=== PATIENT | female | born 1995 | race Caucasian/White ===

== ENCOUNTER 2017-01-22 14:16 | Emergency (ER) | payer BC ==
--- NOTE | 2017-01-22 14:47 | UC ---
Throat Pain/Nasal Minh HPI - HPI Summary HPI Summary: worsening allergy sx, nose, eye drainage--no fevers - History of Current Complaint Hx Obtained From: Patient Hx Last Menstrual Period: 01/07/17 ?: No Onset/Duration: Sudden Onset, Lasting Hours, Still Present Severity: Mild Cough: None Associated Signs & Symptoms: Positive: Sinus Discomfort, Nasal Discharge Related History: Seasonal Allergies <Farhana Bartlett - Last Filed: 01/22/17 15:26> <Rut Matson - Last Filed: 01/22/17 15:47> - History of Current Complaint Chief Complaint: UCGeneralIllness Stated Complaint: ALLERGIES- EYES COMPLAINT Time Seen by Provider: 01/22/17 14:35 - Allergies/Home Medications Allergies/Adverse Reactions: Allergies Allergy/AdvReac Type Severity Reaction Status Date / Time No Known Allergies Allergy Verified 01/22/17 14:22 PMH/Surg Hx/FS Hx/Imm Hx Previously Healthy: Yes - Surgical History Surgical History: None - Social History Occupation: Employed Part-time Lives: With Family Alcohol Use: None Substance Use Type: None Smoking Status (MU): Never Smoked Tobacco <Farhana Bartlett - Last Filed: 01/22/17 15:26> Review of Systems Constitutional: Negative Skin: Negative Eyes: Eye Redness ENT: Nasal Discharge, Sinus Pain/Tenderness Respiratory: Negative Cardiovascular: Negative Gastrointestinal: Negative Genitourinary: Negative Motor: Negative Neurovascular: Negative Musculoskeletal: Negative Neurological: Negative Psychological: Negative All Other Systems Reviewed And Are Negative: Yes <Farhana Bartlett - Last Filed: 01/22/17 15:26> Physical Exam Triage Information Reviewed: Yes Appearance: Well-Appearing, No Pain Distress, Well-Nourished Vital Signs: Initial Vital Signs Temp 98.0 F 01/22/17 14:19 Pulse 88 01/22/17 14:19 Resp 18 01/22/17 14:19 BP 153/100 01/22/17 14:19 Pulse Ox 99 01/22/17 14:19 Vital Signs Reviewed: Yes Eye Exam: Normal Eyes: Positive: Conjunctiva Clear ENT Exam: Normal ENT: Positive: Normal ENT inspection, Hearing grossly normal, Pharynx normal, Nasal congestion, Nasal drainage, TMs normal. Negative: Tonsillar swelling, Tonsillar exudate, Trismus, Muffled/hoarse voice Dental Exam: Normal Dental: Positive: Percussion Tenderness @ Neck exam: Normal Neck: Positive: Supple, Nontender, No Lymphadenopathy Respiratory Exam: Normal Respiratory: Positive: Chest non-tender, Lungs clear, Normal breath sounds, No respiratory distress, No accessory muscle use Cardiovascular Exam: Normal Cardiovascular: Positive: RRR, No Murmur, Pulses Normal, Brisk Capillary Refill Musculoskeletal Exam: Normal Neurological Exam: Normal Psychological Exam: Normal Skin Exam: Normal <Farhana Bartlett - Last Filed: 01/22/17 15:26> Vital Signs: Initial Vital Signs Temp 98.0 F 01/22/17 14:19 Pulse 88 01/22/17 14:19 Resp 18 01/22/17 14:19 BP 153/100 01/22/17 14:19 Pulse Ox 99 01/22/17 14:19 <Rut Matson - Last Filed: 01/22/17 15:47> Throat Pain/Nasal Course/Dx - Course Assessment/Plan: zyrtec, zaditor, nasonex, follow with wire drawing machine operator sonny for more sever sx - Differential Dx/Diagnosis Differential Diagnosis/HQI/PQRI: Otitis Media, Pharyngitis, Sinusitis, URI, Other - Allergic Rhinnitis Provider Diagnoses: Allergic Rhinnitis <Farhana Bartlett - Last Filed: 01/22/17 15:26> Discharge <Farhana Bartlett - Last Filed: 01/22/17 15:26> <Rut Matson - Last Filed: 01/22/17 15:47> - Discharge Plan Condition: Stable Disposition: HOME Prescriptions: Cetirizine HCl [Zyrtec Allergy 10 MG TAB] 10 mg PO DAILY #30 tab Ketotifen Fumarate (Ophth) [Zaditor] 0.025 % OP BID #1 bottle Mometasone NASAL (NF) [Nasonex (NF)] 2 spray .SEE ORDER DAILY #1 nasal.spr Patient Education Materials: How to Use Eye Drops (ED), Allergic Rhinitis (ED) , How to Use Nasal [place] (ED) Forms: *Work Release Referrals: Jef Chan MD [Medical Doctor] - 1 Week Attestation Statement User Type: Provider - I was available for consult. This patient was seen by the [facility]. The patient was not presented to, seen by, or examined by me. -Winifred <Rut Matson - Last Filed: 01/22/17 15:47>
== END 2017-01-22 15:00 | disposition home or self-care (01) ==
LOC: UCEAST 14:16
DX: J30.9 Allergic rhinitis, unspecified (principal)
CPT/HCPCS: 99202; G0463

== ENCOUNTER 2019-03-17 14:21 | Emergency (ER) | payer BC ==
[2019-03-17 14:40] VITALS: BP 138/76
--- NOTE | 2019-03-17 14:51 | UC ---
Complaint Female HPI - HPI Summary HPI Summary: One day history of urinary frequency, urgency and hesitancy, without associated fever, chills, back ache or gross hematuria. No past history of UTI's. LMP 2 weeks ago. Takes oral contraceptives and occasionally uses condoms. Has increase in clear vaginal discharge, but no odor, blisters or pain. We discussed STD screening and she elects to have Chlamydia and GC urinary screening today. She states that she has not been screened in the past. She has had a recent change of partner with unprotected intercourse several days ago. - History Of Current Complaint Chief Complaint: UCGU Stated Complaint: URINARY Time Seen by Provider: 03/17/19 14:40 Hx Obtained From: Patient Hx Last Menstrual Period: "two weeks ago" Onset/Duration: Gradual Onset, Lasting Days - 2 Timing: Intermittent Severity Initially: Mild Severity Currently: Mild Pain Intensity: 2 Character: Burning, Cramping Aggravating Factor(s): Urination Alleviating Factor(s): Nothing Associated Signs And Symptoms: Negative: Fever, Back Pain - Risk Factors Ectopic Risk Factor: Negative Ovarian Torsion Risk Factor: Reproductive Age - Allergies/Home Medications Allergies/Adverse Reactions: Allergies Allergy/AdvReac Type Severity Reaction Status Date / Time No Known Allergies Allergy Verified 03/17/19 14:36 Home Medications: Home Medications Escitalopram * [Lexapro *] 20 mg PO DAILY 03/17/19 [History Confirmed 03/17/19] Norethindrone-E.estradiol-Iron [Eqmcik-Yzgncx-Si 1-0.02(33)-75] 1 tab DAILY 04/25 [History Confirmed 03/17/19] hydrOXYzine HCL TAB* [Atarax 25 MG TAB*] 25 mg PO QID PRN 03/17/19 [History Confirmed 03/17/19] PMH/Surg Hx/FS Hx/Imm Hx Previously Healthy: Yes - overweight - Surgical History Surgical History: None - Family History Known Family History: Positive: Diabetes - PGF has diabetes. - Social History Occupation: Employed Full-time Lives: With Family Alcohol Use: Rare Substance Use Type: Marijuana Substance Use Comment - Amount & Last Used: Daily Smoking Status (MU): Never Smoked Tobacco Review of Systems All Other Systems Reviewed And Are Negative: Yes Constitutional: Positive: Negative Skin: Positive: Negative Eyes: Positive: Negative ENT: Positive: Negative Respiratory: Positive: Negative Gastrointestinal: Positive: Diarrhea - increase in loose stools x 1 week. Genitourinary: Positive: Dysuria, Frequency, Urgency Motor: Positive: Negative Neurovascular: Positive: Negative Musculoskeletal: Positive: Negative Neurological: Positive: Negative Is Patient Immunocompromised?: No Physical Exam Triage Information Reviewed: Yes Appearance: Well-Appearing, No Pain Distress, Obese Vital Signs: Initial Vital Signs Temp 96.6 F 03/17/19 14:32 Pulse 80 03/17/19 14:32 Resp 18 03/17/19 14:32 BP 138/76 03/17/19 14:32 Pulse Ox 99 03/17/19 14:32 Eye Exam: Normal ENT: Positive: Pharynx normal Neck: Positive: Supple, Nontender, No Lymphadenopathy Respiratory: Positive: Lungs clear, Normal breath sounds Cardiovascular: Positive: RRR, No Murmur Abdomen Description: Positive: Nontender, Soft. Negative: CVA Tenderness (R), CVA Tenderness (L) Musculoskeletal Exam: Normal Neurological: Positive: Alert Psychological Exam: Other - anxious demeanor Skin Exam: Normal Diagnostics - Laboratory Lab Results: UA with 1+ leuks Complaint Female Dx - Course Course Of Treatment: Discussed likely UTI, will treat with macrodantin and await culture. Declined pellvic check but does want to screen for Chlamydia and GC. - Differential Dx/Diagnosis Differential Diagnosis/HQI/PQRI: Urinary Tract Infection, Other - vaginosis Provider Diagnosis: UTI (urinary tract infection) Discharge ED - Sign-Out/Discharge Documenting (check all that apply): Patient Departure All imaging exams completed and their final reports reviewed: No Studies - Discharge Plan Condition: Stable Disposition: HOME Prescriptions: Nitrofurantoin Macrocrystals* [Macrodantin 100 mg*] 100 mg PO BID #14 cap Patient Education Materials: Urinary Tract Infection in Women (ED) Referrals: No Primary Care Phys,NOPCP [Primary Care Provider] - Additional Instructions: Begin use of macrodantin one tablet twice daily. Your urine will be cultured and you will be notified if a change of antibiotic is needed based on the culture results. Ensure a high intake of water. Chlamydia and gonorrhea testing will be done and you will notified if a result is positive. - Billing Disposition and Condition Condition: STABLE Disposition: Home
[2019-03-18 13:36] LABS: Chlamydia trachomatis NAA Negative (Negative); Neisseria gonorrhoeae (GC) NAA Negative (Negative)
== END 2019-03-17 15:20 | disposition home or self-care (01) ==
LOC: UCCORT 14:21
DX: N39.0 Urinary tract infection, site not specified (principal); N89.8 Other specified noninflammatory disorders of vagina
CPT/HCPCS: 81003; 87077; 87086; 87491; 87591; 99212; G0463

== ENCOUNTER 2019-04-12 16:20 | Emergency (ER) | payer BC ==
[2019-04-12 16:44] VITALS: BP 146/75
--- NOTE | 2019-04-12 17:20 | UC ---
Respiratory Complaint HPI - HPI Summary HPI Summary: 9 day hx of chest congestion, sore throat, and shortness of breath. She was assessed and prescribed an antibiotic x 2 days ago, rx not filled due to penicillin allergy. She has subjective fever, malaise and feels too unwell to work. Using otc cough and cold preparations. - History of Current Complaint Chief Complaint: UCGeneralIllness Stated Complaint: CHEST CONGESTION Time Seen by Provider: 04/12/19 17:10 Hx Obtained From: Patient Hx Last Menstrual Period: 04/05/19 on BCP Onset/Duration: Gradual Onset, Lasting Days Timing: Constant Severity Initially: Mild Severity Currently: Moderate Pain Intensity: 0 Character: Cough: Productive Aggravating Factors: Exertion, Deep Breaths Alleviating Factors: OTC Meds Associated Signs And Symptoms: Positive: Dyspnea, Wheezing, Nasal Congestion - Risk Factors Pulmonary Embolism Risk Factors: Oral Contraceptives Cardiac Risk Factors: Negative Pseudomonas Risk Factors: Negative Tuberculosis Risk Factors: Negative - Allergies/Home Medications Allergies/Adverse Reactions: Allergies Allergy/AdvReac Type Severity Reaction Status Date / Time Penicillins Allergy Unknown pt unsure Verified 04/12/19 16:46 PMH/Surg Hx/FS Hx/Imm Hx - Additional Past Medical History Additional PMH: obese Psychological History: Depression - Surgical History Surgical History: None - Family History Known Family History: Positive: Diabetes - PGF has diabetes., Respiratory Disease - father has asthma - Social History Occupation: Employed Full-time Alcohol Use: Rare Substance Use Type: Marijuana Substance Use Comment - Amount & Last Used: Daily Smoking Status (MU): Never Smoked Tobacco Review of Systems All Other Systems Reviewed And Are Negative: Yes Constitutional: Positive: Fever - subjective, Fatigue Skin: Positive: Negative Eyes: Positive: Negative ENT: Positive: Nasal Discharge Respiratory: Positive: Shortness Of Breath, Cough Gastrointestinal: Positive: Diarrhea Genitourinary: Positive: Negative Motor: Positive: Negative Neurological: Negative: Headache Psychological: Positive: Negative Is Patient Immunocompromised?: No Physical Exam Triage Information Reviewed: Yes Appearance: Ill-Appearing - congested and coughing., Obese Vital Signs: Initial Vital Signs Temp 98.4 F 04/12/19 16:40 Pulse 86 04/12/19 16:40 Resp 17 04/12/19 16:40 BP 146/75 04/12/19 16:40 Pulse Ox 98 04/12/19 16:40 ENT: Positive: Pharyngeal erythema, TM red - + erythema of TM, Tonsillar swelling. Negative: Tonsillar exudate Dental Exam: Normal Neck: Positive: Supple, Nontender, No Lymphadenopathy Respiratory: Positive: Decreased breath sounds, Wheezing - expiratory Cardiovascular: Positive: RRR, No Murmur Neurological: Positive: Alert, Muscle Tone Normal Psychological Exam: Normal Skin Exam: Normal Respiratory Course/Dx - Course Course Of Treatment: doxy for treatment of bronchitis, albuterol as needed. - Differential Dx/Diagnosis Differential Diagnosis/HQI/PQRI: Bronchitis, Laryngitis, Lower Resp Infection, Sinusitis Provider Diagnosis: Bronchitis Discharge ED - Sign-Out/Discharge Documenting (check all that apply): Patient Departure All imaging exams completed and their final reports reviewed: No Studies - Discharge Plan Condition: Stable Disposition: HOME Prescriptions: Albuterol HFA INHALER* [Ventolin HFA Inhaler*] 2 puff INH Q4H PRN #1 mdi PRN Reason: Wheezing Doxycycline Hyclate 100 mg PO BID #14 tab Patient Education Materials: Acute Bronchitis (ED) Forms: *Work Release Referrals: No Primary Care Phys,NOPCP [Primary Care Provider] - Additional Instructions: To avoid interaction, please do NOT take your control pill within 2 hours of your antibiotic. Use albuterol as needed for wheezing. Off work today. - Billing Disposition and Condition Condition: STABLE Disposition: Home
== END 2019-04-12 17:42 | disposition home or self-care (01) ==
LOC: UCCORT 16:20
DX: J40 Bronchitis, not specified as acute or chronic (principal); E66.9 Obesity, unspecified; R09.81 Nasal congestion; Z88.0 Allergy status to penicillin
CPT/HCPCS: 99212; G0463